=== PATIENT | male | born 1995 | race African-American/Black ===

== ENCOUNTER 2021-10-19 08:23 | Emergency (ER) | payer OTHER ==
[~2021-10-19] VITALS: Ht 170.2 cm; Wt 96.4 kg
[2021-10-19 10:36] VITALS: BP 142/76
== END 2021-10-19 10:26 | disposition home or self-care (01) ==
LOC: ED 08:23
DX: S93.401A Sprain of unspecified ligament of right ankle, initial encounter (principal); Z28.310 Unvaccinated for COVID-19; X50.1XXA Overexertion from prolonged static or awkward postures, initial encounter; Y92.59 Other trade areas as the place of occurrence of the external cause; Y99.0 Civilian activity done for income or pay